=== PATIENT | female | born 1980 | race Two or more races ===

== ENCOUNTER 2016-03-24 01:36 | Emergency (ER) | payer MEDICAID ==
[2016-03-24] MEDS ORDERED: HYDROCODONE/ACETAMINOPHEN 5-325 MG TABLET PO ONE (01:49)
--- NOTE | 2016-03-24 01:52 | ER Document Report ---
ED General - General Chief Complaint: Knee Pain Stated Complaint: KNEE INJURY Notes: Patient is a 35-year-old female presents with complaint of pain in the right knee. Patient says her significant other fell onto her right knee. Her right knee was in a bent position. She complains of pain mainly in the anterior and medial aspect of the knee. She is hurts to move the knee at all. She is able to keep the knee straightened off the bed. She denies any other injuries. No ankle for pain. No hip pain. No numbness or weakness into the foot. TRAVEL OUTSIDE OF THE [place] IN LAST 30 DAYS: No - Related Data Allergies/Adverse Reactions: nitrofurantoin [From Macrobid] Allergy (Verified 03/24/16 01:39) nitrofurantoin macrocrystalline [From Macrobid] Allergy (Verified 03/24/16 01:39 ) Past Medical History - Social History Smoking Status: Unknown if Ever Smoked Frequency of alcohol use: None Drug Abuse: None Family History: Reviewed & Not Pertinent Patient has suicidal ideation: No Patient has homicidal ideation: No Pulmonary Medical History: Reports: Hx Asthma Neurological Medical History: Reports: Hx Migraine Endocrine Medical History: Reports: Hx Diabetes Mellitus Type 2 Musculoskeltal Medical History: Reports Hx Musculoskeletal Trauma Psychiatric Medical History: Reports: Hx Depression Past Surgical History: Reports: Hx Orthopedic Surgery, Hx Tubal Ligation - Immunizations Immunizations up to date: No Hx Diphtheria, Pertussis, Tetanus Vaccination: Yes Review of Systems - Review of Systems Notes: My Normal Review Basic REVIEW OF SYSTEMS: CONSTITUTIONAL : Denies fever, chills, or sweats. Denies recent illness. MUSCULOSKELETAL: Pain in right knee. SKIN: Denies rash or skin lesions. NEUROLOGICAL: Denies sensory or motor loss. ALL OTHER SYSTEMS REVIEWED AND NEGATIVE. Physical Exam - Notes Notes: General Appearance: Well nourished, alert, cooperative, no acute distress, moderate obvious discomfort. Vitals: reviewed, See vital signs table. Extremities: strength 5/5 in all extremities, good pulses in all extremities, no swelling or tenderness in the extremities with exception of pain to palpation of the right knee. Patient has pain palpation on all sides and anterior and posterior aspects of the knee. She is able to keep the knee in full extension and raising of the bed but has pain in doing so. Patella is midline. Patient has increased pain with any flexion or extension of the knee. , no edema. Motor function of distal right lower extremity is fully intact. Skin: warm, dry, appropriate color, no rash Neuro: speech clear, oriented x 3, normal affect, responds appropriately to questions. Distal sensation intact. Course - Transfer of Care Notes: 03/24/16 02:52 X-ray shows no evidence of any fracture. We'll place a placement and a pneumo- mobilizer splint and give her crutches. I will follow-up with orthopedics. Patient was able to keep her leg in extension and lifted off the bed. I therefore do not think she has a complete patellar ligament tear. Informed patient's report she does wear the knee immobilizer as will help protect her knee from further injury until she can follow up with orthopedist. Patient current return to ER she has any further concerns. Patient agrees with plan will be discharged home. Dictation of this chart was performed using voice recognition software; therefore, there may be some unintended grammatical errors. Discharge - Discharge Clinical Impression: Strain of right knee Qualifiers: Encounter type: initial encounter Qualified Code(s): S86.911A - Strain of unspecified muscle(s) and tendon(s) at lower leg level, right leg, initial encounter Condition: Good Disposition: HOME, SELF-CARE Instructions: Oral Narcotic Medication ([facility]), Knee Immobilizing Splint ([facility]), Use of Crutches ([facility]) Additional Instructions: Please follow up with the orthopedist in 1 week for reevaluation. I suspect you have a ligamentous injury of the knee and that is why it is important you wear the knee immobilizer and do not bear weight on your knee. The orthopedic clinic number is [phone].
[2016-03-24 03:34] VITALS: BP 113/65
== END 2016-03-24 03:35 | disposition home or self-care (01) ==
LOC: ER 01:36
DX: S86.911A Strain of unspecified muscle(s) and tendon(s) at lower leg level, right leg, initial encounter (principal); M25.561 Pain in right knee; W19.XXXA Unspecified fall, initial encounter
CPT/HCPCS: 99283; 73564; L1830

== ENCOUNTER 2016-05-04 11:55 | Emergency (ER) | payer MEDICAID ==
[2016-05-04] MEDS ORDERED: MECLIZINE HCL 25 MG TABLET PO ONE (12:04)
--- NOTE | 2016-05-04 12:05 | ER Document Report ---
ED Medical Screen (RME) - General Stated Complaint: DIZZINESS Mode of Arrival: Wheelchair Information source: Patient Notes: Patient reports feeling lightheaded and dizzy. Patient was concerned about possible blood sugar problems. EMS reported that her Accu-Chek was in the 90s. No chest pain, nausea, or vomiting. Patient does complain of continued dizziness. hx: Diabetes I have greeted and performed a rapid initial assessment of this patient. A comprehensive ED assessment and evaluation of the patient, analysis of test results and completion of the medical decision making process will be conducted by additional ED providers. TRAVEL OUTSIDE OF THE [place] IN LAST 30 DAYS: No - Related Data Allergies/Adverse Reactions: nitrofurantoin [From Macrobid] Allergy (Verified 05/04/16 12:02) nitrofurantoin macrocrystalline [From Macrobid] Allergy (Verified 05/04/16 12:02 ) Past Medical History - Social History Family history: Arthritis, CAD, CVA, DM, Hyperlipidemia, Hypertension, Malignancy Pulmonary Medical History: Reports: Hx Asthma Neurological Medical History: Reports: Hx Migraine Endocrine Medical History: Reports: Hx Diabetes Mellitus Type 2 Musculoskeltal Medical History: Reports Hx Musculoskeletal Trauma Psychiatric Medical History: Reports: Hx Depression Past Surgical History: Reports: Hx Orthopedic Surgery, Hx Tubal Ligation - Immunizations Immunizations up to date: No Hx Diphtheria, Pertussis, Tetanus Vaccination: Yes Physical Exam - Cardiovascular Rhythm: Regular Heart sounds: S1 appreciated, S2 appreciated
[2016-05-04 12:43] LABS: ABSOLUTE BASOPHILS # (AUTO) 0.1 10^3/uL (0.0-0.2); ABSOLUTE EOSINOPHILS # (AUTO) 0.1 10^3/uL (0.0-0.6); ABSOLUTE LYMPHOCYTES (AUTO) 1.7 10^3/uL (0.5-4.7); ABSOLUTE MONOCYTES (AUTO) 0.4 10^3/uL (0.1-1.4); ABSOLUTE NEUT (AUTO) 4.5 10^3/uL (1.7-8.2); BASOPHILS % (AUTO) 0.9 % (0-2); EOSINOPHILS % (AUTO) 1.7 % (0-6); HEMATOCRIT 36.5 % (36.0-47.0); HEMOGLOBIN 12.6 g/dL (12.0-15.5); HGB HCT DIFFERENCE 1.3; LYMPHOCYTES % (AUTO) 25.6 % (13-45); MEAN CORPUSCULAR HEMOGLOBIN 29.3 pg (27.0-33.4); MEAN CORPUSCULAR HGB CONC 34.6 g/dL (32.0-36.0); MEAN CORPUSCULAR VOLUME 85 fl (80-97); MONOCYTES % (AUTO) 6.2 % (3-13); RED BLOOD COUNT 4.32 10^6/uL (3.72-5.28); RED CELL DISTRIBUTION WIDTH 12.9 % (11.5-14.0); SEGMENTED NEUTROPHILS % (AUTO) 65.6 % (42-78); WHITE BLOOD COUNT 6.8 10^3/uL (4.0-10.5)
[2016-05-04 13:02] LABS: ALANINE AMINOTRANSFERASE 32 U/L (9-52); ALBUMIN 3.5 g/dL (3.5-5.0); ALKALINE PHOSPHATASE 61 U/L (38-126); ANION GAP 6 (5-19); ASPARTATE AMINO TRANSFERASE 23 U/L (14-36); BLOOD UREA NITROGEN 12 mg/dL (7-20); CALCIUM 9.4 mg/dL (8.4-10.2); CARBON DIOXIDE 29 mmol/L (22-30); CHLORIDE 104 mmol/L (98-107); CREATININE RESULT 0.72 mg/dL (0.52-1.25); GLUCOSE 87 mg/dL (75-110); POTASSIUM 4.1 mmol/L (3.6-5.0); SODIUM 139.4 mmol/L (137-145); TOTAL PROTEIN 7.4 g/dL (6.3-8.2)
[2016-05-04 13:07] LABS: ALCOHOL < 10 mg/dL (NONE DETECTED)
[2016-05-04 13:08] LABS: APPEARANCE,URINE SLIGHTLY-CLOUDY; BILIRUBIN,URINE NEGATIVE (NEGATIVE); GLUCOSE, URINE NEGATIVE (NEGATIVE); KETONES,URINE NEGATIVE (NEGATIVE); LEUKOCYTE ESTERASE,URINE NEGATIVE (NEGATIVE); NITRITE,URINE POSITIVE (NEGATIVE); PROTEIN,URINE NEGATIVE (NEGATIVE); URINE SPECIFIC GRAVITY 1.014; UROBILINOGEN,URINE NEGATIVE mg/dL (<2.0)
[2016-05-04] MEDS ORDERED: CIPROFLOXACIN HCL 500 MG TABLET PO ONE (13:15)
[2016-05-04 13:17] LABS: URINE BARBITURATES SCREEN NEGATIVE; URINE METHADONE SCREEN NEGATIVE; URINE OPIATES LOW NEGATIVE; URINE PHENCYCLIDINE SCREEN NEGATIVE
--- NOTE | 2016-05-04 13:37 | ER Document Report ---
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 She thought her blood sugar was dropping and the teacher at school was shoving cheeto's in her mouth. No LOC. [place] [facility] [place], [place] [facility], .No recent illness. Still has headace, frontal. TRAVEL OUTSIDE OF THE [place] IN LAST 30 DAYS: No - Related Data Allergies/Adverse Reactions: nitrofurantoin [From Macrobid] Allergy (Verified 05/04/16 12:02) nitrofurantoin macrocrystalline [From Macrobid] Allergy (Verified 05/04/16 12:02 ) Past Medical History - General Information source: Patient - Social History Smoking Status: Unknown if Ever Smoked Chew tobacco use (# tins/day): No Frequency of alcohol use: None Drug Abuse: None Family History: Reviewed & Not Pertinent Patient has suicidal ideation: No Patient has homicidal ideation: No Pulmonary Medical History: Reports: Hx Asthma Neurological Medical History: Reports: Hx Migraine Endocrine Medical History: Reports: Hx Diabetes Mellitus Type 2 Renal/ Medical History: Denies: Hx Peritoneal Dialysis Musculoskeltal Medical History: Reports Hx Musculoskeletal Trauma Psychiatric Medical History: Reports: Hx Depression Past Surgical History: Reports: Hx Orthopedic Surgery, Hx Tubal Ligation - Immunizations Immunizations up to date: No Hx Diphtheria, Pertussis, Tetanus Vaccination: Yes Physical Exam - Vital signs Vitals: Temp Pulse Resp BP Pulse Ox 98.0 F 76 15 121/83 100 05/04/16 12:02 05/04/16 12:02 05/04/16 12:02 05/04/16 12:02 05/04/16 12:02 Course - Re-evaluation Re-evalutation: 05/04/16 14:09 category B for Singulair and Zyrtec and she is asking for refill for that and the albuterol Nebules. She states [employer] will not refill that it has to be her primary care doctor and she is in between Medicaid doctors. He feels a lot better no diarrhea since she has been here lungs are clear. I'm starting her on Macrobid for urinary tract infection urine culture is pending. pt has alb MDI but with cough and wheeze potential, wants the alb nebules. 05/04/16 15:29 dr velez is seeing the pt, she is now sleepy from the meds and tender right trapezius muscle at occipital insertion. - Vital Signs Vital signs: Temp Pulse Resp BP Pulse Ox 98.0 F 78 16 105/78 100 05/04/16 15:53 05/04/16 15:53 05/04/16 15:53 05/04/16 15:53 05/04/16 15:53 - Laboratory Result Diagrams: 05/04/16 12:15 05/04/16 12:15 Laboratory results interpreted by me: 05/04/16 12:28 Urine Blood LARGE H Urine Nitrite POSITIVE H Discharge - Discharge Clinical Impression: Dizziness Headache Qualifiers: Headache type: unspecified Headache chronicity pattern: unspecified pattern Intractability: not intractable Qualified Code(s): R51 - Headache Urinary tract infection Qualifiers: Urinary tract infection type: site unspecified Hematuria presence: without hematuria Qualified Code(s): N39.0 - Urinary tract infection, site not specified Condition: Good Disposition: HOME, SELF-CARE Instructions: Nitrofurantoin ([facility]), Urinary Tract Infection ([facility]), Headache ( [facility]), Dizziness ([facility]) Additional Instructions: plenty of fluids to er if worse see neurologist for this headache and dizziness Prescriptions: Ciprofloxacin HCl [Cipro 500 mg Tablet] 500 mg PO BID #6 tablet Forms: Return to Work Referrals: JUSTEN CUEVAS MD [Primary Care Provider] - Follow up as needed TARSHA GAMBINO MD [ACTIVE STAFF] - 05/06/16
[2016-05-04] MEDS ORDERED: PROCHLORPERAZINE MALEATE 10 MG TABLET PO ONE (13:41)
[2016-05-04] MEDS ORDERED: IBUPROFEN 800 MG TABLET PO ONE (13:41)
[2016-05-04] MEDS ORDERED: DIPHENHYDRAMINE HCL 50 MG CAPSULE PO ONE (13:41)
[2016-05-04 16:00] VITALS: BP 105/78
--- NOTE | 2016-05-04 18:39 | EKG REPORT ---
SEVERITY:- ABNORMAL ECG - SINUS RHYTHM LEFT VENTRICULAR HYPERTROPHY BORDERLINE T ABNORMALITIES, INFERIOR LEADS : Confirmed by: Karen Herring 04-May-2016 18:38:26
== END 2016-05-04 16:00 | disposition home or self-care (01) ==
LOC: ER 11:55
DX: N39.0 Urinary tract infection, site not specified (principal); R51 Headache; R42 Dizziness and giddiness; E66.9 Obesity, unspecified; E11.9 Type 2 diabetes mellitus without complications; Z79.4 Long term (current) use of insulin; Z98.51 Tubal ligation status
CPT/HCPCS: 93005; 99284; 36415; 87086; 82962; 80307 ×2; 84703; 85025; 87088; 80053; 81001; 87186; 93010; J3490 ×3; S0183

== ENCOUNTER 2016-08-23 20:11 | Emergency (ER) | payer MEDICAID ==
[2016-08-23 21:34] LABS: APPEARANCE,URINE CLEAR; BILIRUBIN,URINE NEGATIVE (NEGATIVE); GLUCOSE, URINE >=500 mg/dL (NEGATIVE); KETONES,URINE NEGATIVE (NEGATIVE); LEUKOCYTE ESTERASE,URINE NEGATIVE (NEGATIVE); NITRITE,URINE NEGATIVE (NEGATIVE); PROTEIN,URINE NEGATIVE (NEGATIVE); URINE SPECIFIC GRAVITY 1.032; UROBILINOGEN,URINE NEGATIVE mg/dL (<2.0)
[2016-08-23] MEDS ORDERED: NORMAL SALINE 1000 ML 1,000 ML IV ONE ×2 (22:52→23:43)
[2016-08-23 23:21] LABS: ABSOLUTE BASOPHILS # (AUTO) 0.1 10^3/uL (0.0-0.2); ABSOLUTE EOSINOPHILS # (AUTO) 0.1 10^3/uL (0.0-0.6); ABSOLUTE LYMPHOCYTES (AUTO) 2.1 10^3/uL (0.5-4.7); ABSOLUTE MONOCYTES (AUTO) 0.5 10^3/uL (0.1-1.4); ABSOLUTE NEUT (AUTO) 3.7 10^3/uL (1.7-8.2); HEMATOCRIT 38.7 % (36.0-47.0); HEMOGLOBIN 13.2 g/dL (12.0-15.5); HGB HCT DIFFERENCE 0.9; LYMPHOCYTES % (AUTO) 32.6 % (13-45); MEAN CORPUSCULAR VOLUME 85 fl (80-97); MONOCYTES % (AUTO) 7.4 % (3-13); RED BLOOD COUNT 4.54 10^6/uL (3.72-5.28); RED CELL DISTRIBUTION WIDTH 12.9 % (11.5-14.0); WHITE BLOOD COUNT 6.5 10^3/uL (4.0-10.5)
[2016-08-23 23:34] LABS: ALANINE AMINOTRANSFERASE 47 U/L (9-52); ALBUMIN 3.8 g/dL (3.5-5.0); ALKALINE PHOSPHATASE 81 U/L (38-126); ANION GAP 11 (5-19); ASPARTATE AMINO TRANSFERASE 25 U/L (14-36); BILIRUBIN,DIRECT 0.3 mg/dL (0.0-0.4); BLOOD UREA NITROGEN 10 mg/dL (7-20); CALCIUM 9.2 mg/dL (8.4-10.2); CARBON DIOXIDE 26 mmol/L (22-30); CHLORIDE 99 mmol/L (98-107); CREATININE RESULT 0.61 mg/dL (0.52-1.25); GLUCOSE 392 mg/dL (75-110); POTASSIUM 4.1 mmol/L (3.6-5.0); SODIUM 136.1 mmol/L (137-145); TOTAL PROTEIN 7.9 g/dL (6.3-8.2)
[2016-08-24] MEDS ORDERED: INSULIN REG, HUMAN 100 UNIT/ML 3 ML VIAL (PYX) SUBCUT ONE (00:14)
--- NOTE | 2016-08-24 02:49 | ER Document Report ---
ED General - General Chief Complaint: Urinary Problem Stated Complaint: POSSIBLE UTI Time Seen by Provider: 08/23/16 22:07 Mode of Arrival: Ambulatory Information source: Patient Notes: Patient complains of dysuria and urgency for the past 3-4 days. Patient complains of left flank pain prior to voiding. Patient currently denies any flank or abdominal pain. Patient denies any fever. Patient does states she has a history of diabetes but ran out of her medications 2 months ago due to lack of insurance. TRAVEL OUTSIDE OF THE [place] IN LAST 30 DAYS: No - HPI Onset: Other - 3 days Onset/Duration: Persistent Quality of pain: Burning Pain Level: 2 Associated symptoms: denies: Fever, Nausea, Vomiting Exacerbated by: Denies Relieved by: Denies Similar symptoms previously: Yes Recently seen / treated by doctor: No - Related Data Allergies/Adverse Reactions: nitrofurantoin [From Macrobid] Allergy (Verified 05/04/16 12:02) nitrofurantoin macrocrystalline [From Macrobid] Allergy (Verified 05/04/16 12:02 ) Past Medical History - General Information source: Patient Last Menstrual Period: 08/01/2016 - Social History Smoking Status: Never Smoker Frequency of alcohol use: None Drug Abuse: None Family History: Reviewed & Not Pertinent Patient has suicidal ideation: No Patient has homicidal ideation: No Pulmonary Medical History: Reports: Hx Asthma Neurological Medical History: Reports: Hx Migraine Endocrine Medical History: Reports: Hx Diabetes Mellitus Type 2 - pt is not taking her insulin. Renal/ Medical History: Denies: Hx Peritoneal Dialysis Musculoskeltal Medical History: Reports Hx Musculoskeletal Trauma Psychiatric Medical History: Reports: Hx Depression Past Surgical History: Reports: Hx Orthopedic Surgery, Hx Tubal Ligation - Immunizations Immunizations up to date: No Hx Diphtheria, Pertussis, Tetanus Vaccination: Yes Review of Systems - Review of Systems Constitutional: No symptoms reported. denies: Fever EENT: No symptoms reported Cardiovascular: No symptoms reported. denies: Chest pain Respiratory: No symptoms reported Gastrointestinal: No symptoms reported. denies: Abdominal pain, Nausea, Vomiting Genitourinary: Dysuria, Frequency, Flank pain Female Genitourinary: No symptoms reported Musculoskeletal: No symptoms reported Skin: No symptoms reported Hematologic/Lymphatic: No symptoms reported Neurological/Psychological: No symptoms reported Physical Exam - Vital signs Vitals: Temp Pulse Resp BP Pulse Ox 98 F 77 20 125/81 98 08/23/16 20:54 08/23/16 20:54 08/23/16 20:54 08/23/16 20:54 08/23/16 20:54 - General General appearance: Appears well, Alert In distress: None - HEENT Head: Normocephalic, Atraumatic Eyes: Normal Conjunctiva: Normal Nasal: Normal Mouth/Lips: Normal Mucous membranes: Dry Pharynx: Normal Neck: Normal, Supple. No: Lymphadenopathy - Respiratory Respiratory status: No respiratory distress Chest status: Nontender Breath sounds: Normal. No: Rales, Rhonchi, Stridor, Wheezing Chest palpation: Normal - Cardiovascular Rhythm: Regular Heart sounds: S1 appreciated, S2 appreciated Murmur: No - Abdominal Inspection: Morbidly Obese Distension: No distension Bowel sounds: Normal Tenderness: Nontender - Back Back: Normal, Nontender. No: CVA tenderness, Vertebra tenderness - Extremities General upper extremity: Normal inspection, Normal strength General lower extremity: Normal inspection, Normal strength - Neurological Neuro grossly intact: Yes Cognition: Normal [place] Coma Scale Eye Opening: Spontaneous [place] Coma Scale Verbal: Oriented [place] Coma Scale Motor: Obeys Commands [place] Coma Scale Total: 15 - Psychological Associated symptoms: Normal affect, Normal mood - Skin Skin Temperature: Warm Skin Moisture: Dry Skin Color: Normal Course - Vital Signs Vital signs: Temp Pulse Resp BP Pulse Ox 98.0 F 78 18 126/84 H 99 08/23/16 20:55 08/24/16 02:58 08/24/16 02:58 08/24/16 02:58 08/24/16 02:58 - Laboratory Result Diagrams: 08/23/16 23:11 08/23/16 23:11 Laboratory results interpreted by me: 08/23/16 08/23/16 08/24/16 21:00 23:11 00:08 Sodium 136.1 L Glucose 392 H POC Glucose 322 H Urine Glucose (UA) >=500 H 08/24/16 02:25 Sodium Glucose POC Glucose 270 H Urine Glucose (UA) 08/24/16 06:57 Labs- Entire Visit 08/23/16 08/23/16 08/23/16 21:00 21:00 23:11 WBC 6.5 RBC 4.54 Hgb 13.2 Hct 38.7 MCV 85 MCH 29.0 MCHC 34.0 RDW 12.9 Plt Count 176 Seg Neutrophils % 57.0 Lymphocytes % 32.6 Monocytes % 7.4 Eosinophils % 2.0 Basophils % 1.0 Absolute Neutrophils 3.7 Absolute Lymphocytes 2.1 Absolute Monocytes 0.5 Absolute Eosinophils 0.1 Absolute Basophils 0.1 Sodium Potassium Chloride Carbon Dioxide Anion Gap BUN Creatinine Est GFR ( Amer) Est GFR (Non-Af Amer) Glucose POC Glucose Calcium Total Bilirubin Direct Bilirubin Indirect Bilirubin Neonat Total Bilirubin AST ALT Alkaline Phosphatase Total Protein Albumin Urine Color STRAW Urine Appearance CLEAR Urine pH 6.0 Ur Specific Damar 1.032 Urine Protein NEGATIVE Urine Glucose (UA) >=500 H Urine Ketones NEGATIVE Urine Blood NEGATIVE Urine Nitrite NEGATIVE Urine Bilirubin NEGATIVE Urine Urobilinogen NEGATIVE Ur Leukocyte Esterase NEGATIVE Urine WBC (Auto) 2 Urine RBC (Auto) 2 Squamous Epi Cells Auto <1 Urine Ascorbic Acid NEGATIVE Urine HCG, Qual NEGATIVE 08/23/16 08/24/16 08/24/16 23:11 00:08 02:25 WBC RBC Hgb Hct MCV MCH MCHC RDW Plt Count Seg Neutrophils % Lymphocytes % Monocytes % Eosinophils % Basophils % Absolute Neutrophils Absolute Lymphocytes Absolute Monocytes Absolute Eosinophils Absolute Basophils Sodium 136.1 L Potassium 4.1 Chloride 99 Carbon Dioxide 26 Anion Gap 11 BUN 10 Creatinine 0.61 Est GFR ( Amer) > 60 Est GFR (Non-Af Amer) > 60 Glucose 392 H POC Glucose 322 H 270 H Calcium 9.2 Total Bilirubin 1.0 Direct Bilirubin 0.3 Indirect Bilirubin Not Reportable Neonat Total Bilirubin Not Reportable AST 25 ALT 47 Alkaline Phosphatase 81 Total Protein 7.9 Albumin 3.8 Urine Color Urine Appearance Urine pH Ur Specific Damar Urine Protein Urine Glucose (UA) Urine Ketones Urine Blood Urine Nitrite Urine Bilirubin Urine Urobilinogen Ur Leukocyte Esterase Urine WBC (Auto) Urine RBC (Auto) Squamous Epi Cells Auto Urine Ascorbic Acid Urine HCG, Qual Discharge - Discharge Clinical Impression: Urinary symptom or sign, Hx of diabetes mellitus Disposition: HOME, SELF-CARE Instructions: Diabetes ([facility]) Additional Instructions: return as needed for any new or worsening symptoms follow up with a primary care provider for a recheck urine culture is pending, we will call if you different treatment take your diabetic medications as prescribed Prescriptions: Insulin Glargine,Hum.rec.anlog [Lantus Solostar] 45 unit SQ QPM #5 unit Sitagliptin Phos/Metformin HCl [Janumet 50-1,000 Mg Tablet] 1 each PO BID #60 tablet Referrals: JUSTEN CUEVAS MD [Primary Care Provider] - Follow up as needed [facility] [Provider Group] - Follow up as needed [facility] [Provider Group] - Follow up as needed
[2016-08-24 03:01] VITALS: BP 126/84
== END 2016-08-24 03:01 | disposition home or self-care (01) ==
LOC: ER 20:11
DX: R39.198 Other difficulties with micturition (principal); R10.9 Unspecified abdominal pain; E11.9 Type 2 diabetes mellitus without complications
CPT/HCPCS: 99283; 36415; 87086; 82962; 85025; 81025; 87088; 80053; 81001; J7030; J1815

== ENCOUNTER 2020-03-09 18:49 | Emergency (ER) | payer BC, MEDICAID ==
[2020-03-09] MEDS ORDERED: IPRATROPIUM/ALBUTEROL 0.5-2.5 MG/3 ML AMPUL NEB ONE ×2 (19:14→23:45)
--- NOTE | 2020-03-09 19:15 | ER Document Report ---
ED Medical Screen (RME) - General Chief Complaint: Shortness Of Breath Stated Complaint: SHORTNESS OF BREATH Time Seen by Provider: 03/09/20 19:04 Primary Care Provider: JUSTEN CUEVAS MD [Primary Care Provider] - Follow up as needed TRAVEL OUTSIDE OF THE [place] IN LAST 30 DAYS: No - HPI Notes: 03/09/20 19:13 39-year-old female with a history of insulin-dependent diabetes hypertension ZAC presents to the emergency room visiting from [place] for complaints of shortness of breath and chest pressure that started 2 days ago and has become progressively worse. Patient states that she has pain when taking deep breath. Reports chills denies fevers. Reports sinus drainage. denies any nausea vomiting or abdominal pain. No history of asthma, former smoker. Patient tried Mucinex [id number] without relief. States that she tested positive for Covid January 18 and she tested negative for Covid February 05. Patient does have her medications with her. I have greeted and performed a rapid initial assessment of this patient. A comprehensive ED assessment and evaluation of the patient, analysis of test results and completion of the medical decision making process will be conducted by additional ED providers. PHYSICAL EXAMINATION: GENERAL: Well-appearing, well-nourished and in mild distress HEAD: Atraumatic, normocephalic. CV: s1, s2 regular LUNGS: Diminished breath sounds throughout Musculoskeletal: Normal range of motion NEUROLOGICAL: Normal speech, normal gait. SKIN: Warm, Dry, normal turgor, no rashes or lesions noted. The patient was evaluated during a global COVID-19 pandemic and that diagnosis was suspected/considered upon their initial presentation. Their evaluation, treatment and testing was consistent with current guidelines for patients who present with complaints or symptoms and may be related to COVID-19. 03/09/20 19:14 - Related Data Allergies/Adverse Reactions: nitrofurantoin [From Macrobid] Allergy (Verified 03/09/20 19:05) nitrofurantoin macrocrystalline [From Macrobid] Allergy (Verified 03/09/20 19:05) Past Medical History - Social History Family history: Arthritis, CAD, CVA, DM, Hyperlipidemia, Hypertension, Malignancy Pulmonary Medical History: Reports: Hx Asthma Neurological Medical History: Reports: Hx Migraine Endocrine Medical History: Reports: Hx Diabetes Mellitus Type 2 - pt is not taking her insulin. Renal/ Medical History: Denies: Hx Peritoneal Dialysis Musculoskeltal Medical History: Reports Hx Musculoskeletal Trauma Psychiatric Medical History: Reports: Hx Depression Past Surgical History: Reports: Hx Orthopedic Surgery, Hx Tubal Ligation - Immunizations Immunizations up to date: No Hx Diphtheria, Pertussis, Tetanus Vaccination: Yes Physical Exam - Vital signs Vitals: Temp Pulse Resp BP Pulse Ox 98.2 F 90 16 107/67 97 03/09/20 18:53 03/09/20 18:53 03/09/20 18:53 03/09/20 18:53 03/09/20 18:53 Course - Vital Signs Vital signs: Temp Pulse Resp BP Pulse Ox 98.2 F 90 16 93/62 L 97 03/09/20 18:53 03/09/20 18:53 03/09/20 18:53 03/09/20 18:56 03/09/20 18:53 Doctor's Discharge - Discharge Referrals: JUSTEN CUEVAS MD [Primary Care Provider] - Follow up as needed
[2020-03-09 19:53] LABS: ABSOLUTE LYMPHOCYTES (AUTO) 1.3 10^3/uL (0.5-4.7); ABSOLUTE MONOCYTES (AUTO) 0.5 10^3/uL (0.1-1.4); ABSOLUTE NEUT (AUTO) 4.9 10^3/uL (1.7-8.2); BASOPHILS % (AUTO) 0.3 % (0-2); EOSINOPHILS % (AUTO) 0.2 % (0-6); HEMATOCRIT 36.3 % (36.0-47.0); HEMOGLOBIN 12.9 g/dL (12.0-15.5); LYMPHOCYTES % (AUTO) 18.9 % (13-45); MEAN CORPUSCULAR HGB CONC 35.5 g/dL (32.0-36.0); MEAN CORPUSCULAR VOLUME 82 fl (80-97); MONOCYTES % (AUTO) 7.7 % (3-13); PLATELET COUNT 190 10^3/uL (150-450); RED BLOOD COUNT 4.45 10^6/uL (3.72-5.28); RED CELL DISTRIBUTION WIDTH 13.2 % (11.5-14.0); SEGMENTED NEUTROPHILS % (AUTO) 72.9 % (42-78); TOTAL CELLS COUNTED % (AUTO) 100 %; WHITE BLOOD COUNT 6.8 10^3/uL (4.0-10.5)
--- NOTE | 2020-03-09 19:54 | RADIOLOGY REPORT (SQ) ---
EXAM DESCRIPTION: CHEST SINGLE VIEW IMAGES COMPLETED DATE/TIME: 03/09/2020 7:45 pm REASON FOR STUDY: sob and chest pressure COMPARISON: 03/02/2016 EXAM PARAMETERS: NUMBER OF VIEWS: One view. TECHNIQUE: Single frontal radiographic view of the chest acquired. RADIATION DOSE: NA LIMITATIONS: None. FINDINGS: LUNGS AND PLEURA: Patchy infiltrates bilaterally. MEDIASTINUM AND HILAR STRUCTURES: No masses. Contour normal. HEART AND VASCULAR STRUCTURES: Heart normal in size. Normal vasculature. BONES: No acute findings. HARDWARE: None in the chest. OTHER: No other significant finding. IMPRESSION: Bilateral patchy ill-defined infiltrates. May suggest an atypical infectious/ inflammat ory process. TECHNICAL DOCUMENTATION: JOB ID: [id number] 2010 [employer]- All Rights Reserved Reading location - IP/workstation name: [email or web address]
[2020-03-09 20:10] LABS: APPEARANCE,URINE CLOUDY; BILIRUBIN,URINE NEGATIVE (NEGATIVE); COLOR,URINE AMBER; GLUCOSE, URINE NEGATIVE (NEGATIVE); KETONES,URINE NEGATIVE (NEGATIVE); LEUKOCYTE ESTERASE,URINE LARGE (NEGATIVE); NITRITE,URINE POSITIVE (NEGATIVE); PROTEIN,URINE 30 mg/dL (NEGATIVE); URINE SPECIFIC GRAVITY 1.018
[2020-03-09 20:14] LABS: ALBUMIN 3.7 g/dL (3.5-5.0); ALKALINE PHOSPHATASE 73 U/L (38-126); ANION GAP 9 (5-19); ASPARTATE AMINO TRANSFERASE 42 U/L (14-36); BILIRUBIN,DIRECT 0.1 mg/dL (0.0-0.4); BILIRUBIN,TOTAL 1.1 mg/dL (0.2-1.3); BLOOD UREA NITROGEN 7 mg/dL (7-20); CALCIUM 8.6 mg/dL (8.4-10.2); CARBON DIOXIDE 25 mmol/L (22-30); CHLORIDE 105 mmol/L (98-107); CREATINE KINASE 49 U/L (30-135); GLUCOSE 196 mg/dL (75-110); POTASSIUM 3.8 mmol/L (3.6-5.0); TOTAL PROTEIN 7.5 g/dL (6.3-8.2)
[2020-03-09 20:26] LABS: CREATINE KINASE MB < 0.22 ng/mL (<4.55); TROPONIN I < 0.012 ng/mL
[2020-03-10] MEDS ORDERED: MORPHINE SULFATE 10 MG/ML INJ IV PRN (00:48)
--- NOTE | 2020-03-10 00:52 | ER Document Report ---
ED General - General Chief Complaint: Shortness Of Breath Stated Complaint: SHORTNESS OF BREATH Time Seen by Provider: 03/09/20 19:04 Primary Care Provider: JUSTEN CUEVAS MD [NO LOCAL MD] - Follow up as needed Mode of Arrival: Ambulatory Information source: Patient TRAVEL OUTSIDE OF THE [place] IN LAST 30 DAYS: No - HPI Notes: This patient is a 39-year-old female visiting from [place] who presents to the emergency department with a several day history of gradually progressively worsening chest tightness and shortness of breath. She and her boyfriend traveled down here from [facility] for the holidays. She has a history of previous pulmonary embolism about a year ago for which she was treated with Eliquis for 7 months. She says that she went through a number of tests and no cause for her PE was ever identified. Her anticoagulation was stopped about 4 months ago. She does not smoke. She is not on control. She was diagnosed with COVID-19 on January 18. She did not require hospitalization. She was subsequently retested on February 05 and found to be negative. She has no history of heart disease. She denies any fever or chills. She denies any cough. She denies any hemoptysis. She denies . She is otherwise in her usual state of health. - Related Data Allergies/Adverse Reactions: nitrofurantoin [From Macrobid] Allergy (Verified 03/09/20 19:05) nitrofurantoin macrocrystalline [From Macrobid] Allergy (Verified 03/09/20 19:05) Home Medications: basaglar,janumet, lisinopril, topirmate, novolog, metoprolol Past Medical History - General Information source: Patient - Social History Smoking Status: Never Smoker Chew tobacco use (# tins/day): No Frequency of alcohol use: None Drug Abuse: None Family History: Reviewed & Not Pertinent Patient has homicidal ideation: No - Medical History Notes: Patient initially did not disclose that she had a history of pulmonary embolism about a year ago and was on Eliquis for 7 months. That did not come to light until I reinterviewed her about 5 hours after she arrived. Past medical history as documented in the electronic health record is otherwise reviewed. Pulmonary Medical History: Reports: Hx Asthma Neurological Medical History: Reports: Hx Migraine Endocrine Medical History: Reports: Hx Diabetes Mellitus Type 2 - pt is not taking her insulin. Renal/ Medical History: Denies: Hx Peritoneal Dialysis Musculoskeletal Medical History: Reports Hx Musculoskeletal Trauma Psychiatric Medical History: Reports: Hx Depression Past Surgical History: Reports: Hx Orthopedic Surgery, Hx Tubal Ligation - Immunizations Immunizations up to date: No Hx Diphtheria, Pertussis, Tetanus Vaccination: Yes Review of Systems - Review of Systems Notes: Constitutional: No fever or chills. Respiratory: As per history of present illness. Genitourinary: Last menstrual period February 28. Patient reports increased urinary frequency. Denies dysuria or back pain. Musculoskeletal: Some pain in the left leg. All other systems are reviewed and are negative or noncontributory except as noted in the present illness. Physical Exam - Vital signs Vitals: Temp Pulse Resp BP Pulse Ox 98.2 F 90 16 107/67 97 03/09/20 18:53 03/09/20 18:53 03/09/20 18:53 03/09/20 18:53 03/09/20 18:53 - Notes Notes: General: Well-developed morbidly obese female appearing uncomfortable but in no acute distress. Vital signs and nursing documentation are reviewed. HEENT: Grossly normal to inspection. Neck: Supple, trachea midline, no adenopathy, no JVD. Chest: Normal configuration. Tender to palpation over the costochondral junctions anteriorly which reproduces her pain. Lungs are clear to auscultation all nuñez. Heart: Regular rate and rhythm no murmur rub or gallop. Abdomen: Obese, soft, nontender, no masses. Extremities: Mild tenderness in the left calf without edema or true Homans' sign. Right calf is negative for any tenderness. Extremities are otherwise unremarkable. Skin: Warm moist good turgor no rashes. Neuro: Alert and oriented x3. Cranial nerves II through appear intact. No motor or sensory deficits noted. Course - Re-evaluation Re-evalutation: 03/10/20 01:25 The patient's initial labs were all normal or nondiagnostic except for her urinalysis, which showed an incidental UTI. Her troponins were negative x2. Given her symptoms, her history of prior PE, and her history of recent Covid, I felt it appropriate to move directly to a CTA of the chest to rule in or rule out pulmonary embolism. Since the patient does not fit into a low risk category D-dimer is really not helpful in this setting. She was medicated for pain. CT scanning is pending at the time of this dictation. - Vital Signs Vital signs: Temp Pulse Resp BP Pulse Ox 98.2 F 90 24 H 115/77 95 03/09/20 18:53 03/09/20 18:53 03/10/20 02:00 03/10/20 00:13 03/10/20 02:00 - Laboratory Results Result Diagrams: 03/09/20 19:35 03/09/20 19:35 Laboratory Results Interpreted: 03/09/20 03/09/20 19:35 19:35 Glucose 196 H AST 42 H ALT 41 H Urine Protein 30 H Urine Blood SMALL H Urine Nitrite POSITIVE H Urine Urobilinogen 2.0 H Ur Leukocyte Esterase LARGE H Critical Laboratory Results Reviewed: No Critical Results - Radiology Results Critical Radiology Results Reviewed: No Critical Results Discharge - Discharge Clinical Impression: Chronic pulmonary embolism Qualifiers: Pulmonary embolism type: other Acute cor pulmonale presence: without acute cor pulmonale Qualified Code(s): I27.82 - Chronic pulmonary embolism Disposition: HOME, SELF-CARE Additional Instructions: You have been given a prescription for Xarelto 15 mg twice a day for 3 weeks. Please take this twice a day as prescribed. This is a blood thinner. Do not take any aspirin, ibuprofen, or naproxen while taking this. You may use Tylenol as needed for chest wall pain. You should follow-up with your primary care provider when you get home to [place] to reevaluate your CAT scan and decide whether or not you need long-term anticoagulation. Return to the emergency department if any other concerning symptoms develop. Prescriptions: Rivaroxaban [Xarelto 15 mg Tablet] 15 mg PO BID #42 tablet Referrals: JUSTEN CUEVAS MD [NO LOCAL MD] - Follow up as needed
--- NOTE | 2020-03-10 01:45 | RADIOLOGY REPORT (SQ) ---
EXAM DESCRIPTION: CTA CHEST CLINICAL HISTORY: 39 years Female; chest pain, hx PE 1 yr ago, hx previous Covid TECHNIQUE: CT angiogram of the chest using intravenous contrast.. MIP reconstructions were performed. All CT scans at this facility use dose modulation, iterative reconstruction, and/or weight based dosing when appropriate to reduce radiation dose to as low as reasonably achievable. COMPARISON: None. FINDINGS: Chest: Vascular: The contrast bolus is centered on the systemic arterial supply. In addition there is motion artifact. This limits diagnostic utility. However, despite this there is a visible synechia I in a left lower lobe segmental pulmonary artery consistent with chronic pulmonary artery embolization. No acute pulmonary artery embolization is seen bilaterally. Thoracic aorta is of normal caliber. No aneurysm or dissection. Lungs: Lung volumes are low. There is patchy peripheral groundglass consolidation bilaterally. This is most pronounced along the lung periphery as well as in the lung periphery. No definitive pleural effusion or pneumothorax. Mediastinum: Heart size is within normal limits. The airway is patent. No mediastinal or hilar lymphadenopathy. Bones and soft tissues: Unremarkable Upper Abdomen: The liver and spleen are enlarged. There is diffuse fatty infiltration of the liver. IMPRESSION: 1. Subtle chronic pulmonary artery embolization seen in the right lower lobe segmental vessel. No acute pulmonary artery embolization is noted bilaterally. 2. Peripheral patchy groundglass infiltrate in the lung parenchyma bilaterally consistent with Covid or viral pneumonia. 3. Hepatosplenomegaly with fatty infiltration of the liver.
[2020-03-10] MEDS ORDERED: RIVAROXABAN 15 MG TABLET PO ONE ×2 (02:20→02:21)
[2020-03-10] MEDS ORDERED: RIVAROXABAN 15 MG TABLET ONE (02:58)
[2020-03-10 03:32] VITALS: BP 113/80
--- NOTE | 2020-03-10 10:12 | EKG REPORT ---
SEVERITY:- ABNORMAL ECG - SINUS RHYTHM LEFT VENTRICULAR HYPERTROPHY BORDERLINE T ABNORMALITIES, INFERIOR LEADS : Confirmed by: Adolfo Hampton MD 10-Mar-2020 10:12:26
== END 2020-03-10 03:29 | disposition home or self-care (01) ==
LOC: ER 18:49
DX: I27.82 Chronic pulmonary embolism (principal); R06.02 Shortness of breath; R07.9 Chest pain, unspecified; R35.0 Frequency of micturition; Z79.01 Long term (current) use of anticoagulants; Z88.8 Allergy status to other drugs, medicaments and biological substances; Z79.899 Other long term (current) drug therapy; Z79.4 Long term (current) use of insulin; J45.909 Unspecified asthma, uncomplicated; E11.9 Type 2 diabetes mellitus without complications; E66.01 Morbid (severe) obesity due to excess calories
CPT/HCPCS: 93005; 94640; 99285; 96374; 36415; 82553; 82550; 85025; 81025; 80053; 81001; 84484; 71045; 71275; 93010; J2270